=== PATIENT | female | born 1940 | race Two or more races ===

== ENCOUNTER → 2016-05-19 | Outpatient (CLI) | payer OTHER | LOC: MMPC 09:00 | PROVIDERS: ATTEND Family Medicine | DX: H61.23 Impacted cerumen, bilateral (principal); B37.0 Candidal stomatitis | CPT/HCPCS: 99214; G0463 ==

== ENCOUNTER → 2016-07-19 | Outpatient (CLI) | payer OTHER ==
[2016-07-19 13:00] LABS: BASOPHILS # (AUTO) 0.08 10*3/UL; EOSINOPHILS % (AUTO) 1.1 % (0-8); HEMATOCRIT 47.6 % (37.0-47.0); HEMOGLOBIN 15.7 g/dL (12.0-16.0); IMM GRAN % (AUTO) 0.1 % (0-5); IMM GRAN# (AUTO) 0.01 10*3/UL; LYMPHOCYTES # (AUTO) 2.68 10*3/uL; MEAN CORPUSCULAR HEMOGLOBIN 29.6 PG (27-31); MEAN PLATELET VOLUME 9.2 FL (7.4-12.2); MONOCYTES # (AUTO) 0.59 10*3/UL (0.3-0.8); NEUTROPHILS # (AUTO) 4.93 10*3/UL; NEUTROPHILS % (AUTO) 58.8 % (50-80); RDW COEFFICIENT OF VARIATION 12.8 % (11.5-14.5); WHITE BLOOD COUNT 8.38 10^3/uL (4.8-10.8)
[2016-07-19 13:04] LABS: PLATELET MORPHOLOGY COMMENT NORMAL MORPHOLOGY (NORM)
[2016-07-19 13:20] LABS: BILIRUBIN,TOTAL 0.5 mg/dL (0.3-1.2); BUN/CREATININE RATIO 12.5 (6-20); CALCIUM 9.8 mg/dL (8.7-10.7); CREATININE 0.8 mg/dL (0.50-1.20); POTASSIUM 4.2 meq/L (3.8-5.2); TOTAL PROTEIN 7.4 g/dL (6.1-8.0)
[2016-07-19 14:17] LABS: FREE T4 (FREE THYROXINE) 2.25 ng/dL (0.93-1.71)
== END ==
LOC: MOB LAB 12:23
PROVIDERS: ATTEND Family Medicine
DX: E03.9 Hypothyroidism, unspecified (principal); K29.70 Gastritis, unspecified, without bleeding; R10.12 Left upper quadrant pain; E55.9 Vitamin D deficiency, unspecified; K59.00 Constipation, unspecified
CPT/HCPCS: 36415; 80053; 82306; 84439; 84443; 85025; 99213; G0463

== ENCOUNTER → 2016-07-24 | Outpatient (CLI) | payer OTHER ==
--- NOTE | 2016-07-24 17:23 | DI ---
CT ABDOMEN SCAN WITH IV CONTRAST, 07/24/2016 12:36 PM : Clinical History: Left upper quadrant pain. Gastritis. Constipation. Previous Exam: None at this facility. Scans are performed from the lower lung bases through the liver and kidneys with IV contrast. 75 ml o f Isovue 300 was injected IV. Low density oral barium contrast (Volumen - low density CT enterography oral contrast) was administered for all phases of the exam. The lung bases are clear. The liver is normal. The patient is status post cholecystectomy. No abnorma lities of the gastric mucosa is identified. There is no abnormality of the spleen, pancreas, and adre nal glands. The left kidney is normal in size, shape, position and contour. The right kidney is unrem arkable except for a 5 cm simple cyst in the upper pole. There is no hydronephrosis or hydroureter. N o renal or ureteral calculi are present. There are no abnormal retrocrural or periaortic nodes. No as cites is present. The distal descending thoracic aorta is mildly ectatic and measures 32 mm in diamet er. READING: Normal CT abdomen scan. CT PELVIS SCAN WITH IV CONTRAST, 07/24/2016 12:36 PM: Clinical History: See above. Previous Exam: None at this facility. Scans are performed from just superior to the umbilicus to the symphysis pubis with IV contrast. This is the same bolus of contrast used for the CT scans of the abdomen. Scans through the lower abdomen and pelvis show no masses or abnormal fluid collections. There is no adenopathy. The appendix is not visualized and may be surgically absent. There is no inflammatory mas s in either in the cecal tip or in the right lower quadrant. The small bowel, terminal ileum, and ile ocecal valve are normal. The colon is also normal and without an excessive amount of stool or presenc e of a fecal impaction. There are no hernias but there is diastases recti from just above the umbilic us to just superior to the symphysis pubis. The aorta has a normal caliber but there are mural thromb i present in the distal abdominal aorta. The patient is status post hysterectomy and bilateral salpin go-oophorectomy. 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 READIN. Normal CT scan of the pelvis. 2. 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
== END ==
LOC: CT 12:29
PROVIDERS: ATTEND Family Medicine
DX: K29.70 Gastritis, unspecified, without bleeding (principal); K59.00 Constipation, unspecified; R10.12 Left upper quadrant pain
CPT/HCPCS: 74177

== ENCOUNTER → 2016-08-07 | Outpatient (CLI) | payer OTHER | LOC: MMPC 09:00 | PROVIDERS: ATTEND Physician Assistant Medical | DX: H61.22 Impacted cerumen, left ear (principal); H91.93 Unspecified hearing loss, bilateral | CPT/HCPCS: 99213; G0463 ==

== ENCOUNTER → 2016-09-07 | Outpatient (CLI) | payer OTHER ==
--- NOTE | 2016-09-07 12:25 | DI ---
PA /LATERAL CHEST X-RAY, 09/07/2016 11:41 AM : Clinical History: Cough. Previous Exam: 02/29/2008. There is no acute soft tissue or bony abnormality. Heart size is at the upper limits of normal. There is no CHF. Lungs are clear. Mediastinal structures are normal. There are no pulmonary nodules. The p atbeni has had previous thyroid surgery. Reading: Normal chest x-ray. There has been no interval change.
== END ==
LOC: MOB RAD 11:42
PROVIDERS: ATTEND Family Medicine
DX: R05 Cough (principal)
CPT/HCPCS: 71020

== ENCOUNTER → 2016-09-29 | Outpatient (CLI) | payer OTHER | LOC: MMPC 09:00 | PROVIDERS: ATTEND Family Medicine | DX: R05 Cough (principal); R53.83 Other fatigue; H61.23 Impacted cerumen, bilateral; E55.9 Vitamin D deficiency, unspecified | CPT/HCPCS: 69209 ×2; 99214; G0463 ==

== ENCOUNTER → 2016-12-29 | Outpatient (CLI) | payer OTHER ==
[2016-12-29 14:30] LABS: FREE T4 (FREE THYROXINE) 1.83 ng/dL (0.93-1.71)
== END ==
LOC: MOB LAB 12:05
PROVIDERS: ATTEND Family Medicine
DX: J42 Unspecified chronic bronchitis (principal); E03.9 Hypothyroidism, unspecified; E55.9 Vitamin D deficiency, unspecified; R05 Cough; R06.02 Shortness of breath
CPT/HCPCS: 36415; 82306; 84439; 84443; 99213; G0463